=== PATIENT | female | born 1995 | race African-American/Black ===

== ENCOUNTER 2025-06-14 05:52 | Day surgery (SDC) | payer OTHER, SELFPAY ==
[2025-06-14] VITALS (11 sets, daily range): BP systolic 111–140; BP diastolic 69–87; BMI 30.9
[2025-06-14] MEDS: TYLENOL 1000 MG PO (06:27)
[2025-06-14] MEDS: NORMOSOL-R/PLASMALYTE-A 1000 IV (06:42)
[2025-06-14] MEDS: DILAUDID 0.25 MG IV (11:21)
[2025-06-14] MEDS: ZOFRAN 4 MG IV (11:42)
--- NOTE | 2025-06-14 12:34 | W.IMMPOSTOP ---
Surgical Immed Post Op Note
-
Primary Surgeon: Guille Ayon MD
Assisting Surgeon: Sabino Wall PA-C
Pre-op Diagnosis: right knee anterior cruciate ligament rupture
Post-op Diagnosis: right knee anterior cruciate ligament rupture
Procedure Performed: arthroscopic right knee anterior cruciate ligament reconstruction with patella tendon autograft
Anesthesia Type: general, regional
Specimen / Cultures: none
Estimated Blood Loss: 25mL
Complications: none apparent
Operative Findings: complete rupture from femoral attachment
Tourniquet time: 120 minutes at 250 mm Hg
Implants: [employer] FastThread Biocoposite screw 9x20mm, [id number]
Dictation #: [id number]
== END 2025-06-14 13:36 | disposition home or self-care (01) ==
LOC: SDS 05:52
PROVIDERS: ATTENDING PHYSICIAN Student in an Organized Health Care Education/Training Program
DX: S83.511A Sprain of anterior cruciate ligament of right knee, initial encounter (principal); X58.XXXA Exposure to other specified factors, initial encounter
CPT/HCPCS: 29888; C1713